=== PATIENT | female | born 1980 ===

== ENCOUNTER 2016-10-26 17:18 | Emergency (ER) | payer SELFPAY ==
[2016-10-26 17:21] VITALS: BMI 21.0
[2016-10-26 17:24] VITALS: TEMP 97.8
[2016-10-26] MEDS ORDERED: Sodium Chloride 0.9% 1,000 ML IV STA (17:37)
[2016-10-26] MEDS ORDERED: Sodium Chloride 0.9% 1,000 ML ONE ×2 (17:42→21:48)
[2016-10-26 17:55] LABS: BASO # 0.1 K/uL (0.0-0.2); BASO % 1.1 % (0.0-2.0); EOS # 0.2 K/uL (0.0-0.7); EOS % 1.7 % (0.0-4.0); LYMPH # 2.9 K/uL (1.0-4.3); LYMPH % 22.3 % (20.0-40.0); MEAN CELL VOLUME 86.9 fL (81.0-99.0); MEAN CORPUSCULAR HEMOGLOBIN 28.2 pg (27.0-31.0); MEAN CORPUSCULAR HGB CONC 32.5 g/dL (33.0-37.0); MEAN PLATELET VOLUME 9.2 fL (7.2-11.7); MONO # 1.4 K/uL (0.0-0.8); MONO % 10.7 % (0.0-10.0); NRBC % 0.1 % (0.0-2.0); RED CELL DISTRIBUTION WIDTH 12.6 % (11.5-14.5); WHITE BLOOD COUNT 12.9 K/uL (4.8-10.8)
[2016-10-26 17:59] LABS: CHLORIDE 93 mmol/L (98-107)
[2016-10-26 18:00] LABS: SODIUM 134 mmol/L (132-148)
[2016-10-26 18:01] LABS: POTASSIUM 3.1 mmol/L (3.6-5.2)
[2016-10-26 18:02] LABS: GFR AFRICAN-AMERICAN > 60
[2016-10-26 18:03] LABS: ALB/GLOB RATIO 1.2 (1.0-2.1); ALKALINE PHOSPHATASE 82 U/L (38-126); ALT/SGPT 51 U/L (9-52); AST/SGOT 46 U/L (14-36); BILIRUBIN,TOTAL 0.9 mg/dL (0.2-1.3); BLOOD UREA NITROGEN 22 mg/dL (7-17); CARBON DIOXIDE 28 mmol/L (22-30); GLUCOSE,RANDOM 95 mg/dL (65-105); TOTAL PROTEIN 8.1 g/dL (6.3-8.3)
--- NOTE | 2016-10-26 18:37 | C.PDOC ---
History Of Present Illness <Kym Moya - Last Filed: 10/26/16 19:01> <Jeanne Grove - Last Filed: 10/26/16 22:32> 36 year old female presents to the ED with complaints of upper abdominal pain and vomiting for 8 days straight. She notes she went to the clinic today and was sent for evaluation. Patient has a positive test and believes she is 8-9 weeks and has a 10 month old child. Patient denies any diarrhea , fever, or other complaints at this time. (Kym Moya) History Per: Patient History/Exam Limitations: no limitations Onset/Duration Of Symptoms: Days (8 days ) Current Symptoms Are (Timing): Still Present Location Of Pain/Discomfort: Other (upper abdominal pain ) Quality Of Discomfort: "Pain" Associated Symptoms: Vomiting. denies: Fever, Chills, Diarrhea Recent travel outside of the [place]: No <Kym Moya - Last Filed: 10/26/16 19:01> <Jeanne Grove - Last Filed: 10/26/16 22:32> Time Seen by Provider: 10/26/16 17:26 Chief Complaint (Nursing): GI Problem Past Medical History Reviewed: Historical Data, Nursing Documentation, Vital Signs Family History: States: No Known Family Hx - Social History Hx Alcohol Use: No Hx Substance Use: No - Immunization History Hx Tetanus Toxoid Vaccination: No Hx Influenza Vaccination: No Hx Pneumococcal Vaccination: No <Kym Moya - Last Filed: 10/26/16 19:01> Review Of Systems Constitutional: Negative for: Fever, Chills, Sweats Gastrointestinal: Positive for: Vomiting. Negative for: Nausea, Abdominal Pain , Diarrhea Genitourinary: Negative for: Dysuria, Hematuria <Kym Moya - Last Filed: 10/26/16 19:01> Physical Exam - Physical Exam Appears: Non-toxic, No Acute Distress Skin: Warm, Dry Head: Normacephalic Eye(s): bilateral: Normal Inspection Oral Mucosa: Moist Neck: Supple Chest: Symmetrical, No Deformity Cardiovascular: Rhythm Regular, Murmur Respiratory: No Accessory Muscle Use, No Rales, No Rhonchi, No Stridor, No Wheezing Gastrointestinal/Abdominal: Soft, Tenderness (tenderness in epigastric area ), No Distention, No Guarding, No Rebound Extremity: Normal ROM, No Tenderness Neurological/Psych: Oriented x3 <Kym Moya - Last Filed: 10/26/16 19:01> ED Course And Treatment - Laboratory Results Result Diagrams: 10/26/16 17:45 10/26/16 17:45 O2 Sat by Pulse Oximetry: 97 (room air ) <Kym Moya - Last Filed: 10/26/16 19:01> - Laboratory Results Result Diagrams: 10/26/16 17:45 10/26/16 17:45 Pulse Ox Interpretation: Normal Reevaluation Time: 22:32 Reassessment Condition: Improved <Jeanne Grove - Last Filed: 10/26/16 22:32> Medical Decision Making <Kym Moya - Last Filed: 10/26/16 19:01> <Kayla Grovedi - Last Filed: 10/26/16 22:32> Medical Decision Making: Patient was IV hydrated and a US for pelvis and abdomen was performed. Patient had elevated lipase. (Kym Moya) Disposition - Disposition Disposition Time: 19:02 <Kym Moya - Last Filed: 10/26/16 19:01> Counseled Patient/Family Regarding: Studies Performed, Diagnosis, Need For Followup, Rx Given <PerfectoKaylachristian - Last Filed: 10/26/16 22:32> - Disposition Referrals: Damian Gifford MD [Staff Provider] - Disposition: HOME/ ROUTINE Condition: FAIR Additional Instructions: Please return if symptoms recur. Slowly increase your food intake Prescriptions: Metoclopramide [Reglan] 1 tab PO TID PRN #25 tab PRN Reason: Nausea/Vomiting Nitrofurantoin Macrocrystals [Macrobid] 1 cap PO BID #14 cap Instructions: Hyperemesis Gravidarum (ED), Abdominal Pain in (ED) - Clinical Impression Clinical Impression: Vomiting, Nausea, Abdominal pain during - Scribe Statement The provider has reviewed the documentation as recorded by the Scribe <Kym Moya - Last Filed: 10/26/16 19:01> <Jeanne Grove - Last Filed: 10/26/16 22:32> - Scribe Statement Shasta Osorio All medical record entries made by the Scribe were at my direction and personally dictated by me. I have reviewed the chart and agree that the record accurately reflects my personal performance of the history, physical exam, medical decision making, and the department course for this patient. I have also personally directed, reviewed, and agree with the discharge instructions and disposition. (Kym Moya) Physician Patient Turnover Patient Signed Over To: Jeanne Grove Handoff Comments: Abd and pelvic US, dispo <Kym Moya - Last Filed: 10/26/16 19:01>
[2016-10-26] MEDS ORDERED: Sodium Chloride 0.9% 1,000 ML IV ONE (20:38)
--- NOTE | 2016-10-26 20:48 | US ---
EXAM: US Abdomen Complete CLINICAL HISTORY: 36 years old, female; Signs and symptoms; Vomiting; ; Additional info: , vomiting, elevated lipase wbcs TECHNIQUE: Real-time ultrasound of the abdomen (complete) with image documentation. EXAM DATE/TIME: Exam ordered 10/26/2016 6:11 PM COMPARISON: No relevant prior studies available. FINDINGS: Liver: The liver measures 12.9 cm in craniocaudal span. There is normal blood flow direction the main portal vein. No intrahepatic bile duct dilation. Gallbladder: Sludge is noted within the gallbladder. No gallstones. Common bile duct: The common bile duct measures 3 mm.. No stones. No dilation. Pancreas: Unremarkable as visualized. Kidneys: The right kidney measures 10.6 x 3.7 x 5.2 cm. The left kidney measures 10 x 4.9 x 4.7 cm. No stones. No hydronephrosis. Spleen: The spleen measures 8.3 cm in craniocaudal span. Aorta: Unremarkable. No aneurysm. Inferior vena cava: Unremarkable. Other findings: IMPRESSION: Sludge within the gallbladder
--- NOTE | 2016-10-26 20:53 | US ---
EXAM: US First Trimester, Transabdominal CLINICAL HISTORY: 36 years old, female; Signs and symptoms; Lmp or gestational age (in weeks): Unknown; Other: Vomiting; TECHNIQUE: Real-time transabdominal obstetrical ultrasound of the maternal pelvis and a first trimester with image documentation. EXAM DATE/TIME: Exam ordered 10/26/2016 5:38 PM COMPARISON: No relevant prior studies available. FINDINGS: Gestation: There is a single intrauterine gestational sac. The sac measures 4.8 x 1.9 x 3.6 cm for a mean sac diameter of 3.4 cm representing a menstrual age of 8 weeks and 4 days. There is a yolk sac present. There is a pole with a crown-rump length measurement of 1.8 cm for menstrual age of 8 weeks and 2 days Cardiac activity is noted at a rate of 174 beats per minute. Placenta/amniotic fluid: There is a subchorionic hemorrhage noted measuring 1.1 x 1.1 x 2.1 cm. It occupies less than 10% of the circumference of the sac. Uterus/cervix: The uterus is retroflexed and measures 9.9 x 6.4 x 6.6 cm . The cervix is closed the time the examination measure 3.4 cm in length. No myometrial mass. Ovaries: The left ovary measures 2.4 x 2.5 x 1.8 cm. Blood flow is demonstrated on color Doppler examination within the left ovary. The right ovary measures 2.7 x 2 x 2.6 cm. Subcentimeter follicles are present. Blood flow is demonstrated on pulsed Doppler examination. No mass. Free fluid: No free fluid. IMPRESSION: 1. Single live intrauterine with an estimated menstrual age of 8 weeks and 2 days. 2. Small subchorionic hemorrhage.
[2016-10-26] MEDS ORDERED: Potassium Chloride 10 mEq ER Tab PO STA (21:36)
[2016-10-26] MEDS ORDERED: Potassium Chloride 20 mEq ER Tab PO ONE (21:47)
[2016-10-26] MEDS: Sodium Chloride 0.9% 1,000 ML IV ONE ×2 (21:49→21:50)
[2016-10-26 22:21] LABS: RBC URINE 7 /hpf (0-3); URINE BILIRUBIN NEGATIVE (NEGATIVE); URINE BLOOD NEGATIVE (NEGATIVE); URINE COLOR Yellow (YELLOW); URINE GLUCOSE (UA) NORMAL (Normal); URINE KETONE 2+ mg/dL (NEGATIVE); URINE LEUKOCYTE ESTERASE 2+ Leu/uL (Negative); URINE PROTEIN 1+ mg/dL (NEGATIVE); WBC URINE 27 /hpf (0-5)
[2016-10-26 22:47] VITALS: BP 120/80; PULSE 80; RESP 14; O2SAT 99
== END 2016-10-26 22:49 | disposition home or self-care (01) ==
LOC: C.ER 17:18 → EDBD 17:18 → C.ER 22:49
DX: O21.0 Mild hyperemesis gravidarum (principal); O26.891 Other specified pregnancy related conditions, first trimester; R10.10 Upper abdominal pain, unspecified; Z3A.08 8 weeks gestation of pregnancy
CPT/HCPCS: 76700; 76801; 80053; 81001; 83690; 84702; 85025; 96361; 96374; 99284; J2405; J7040

== ENCOUNTER 2016-11-05 10:00 | Observation (INO) | payer OTHER ==
[2016-11-05 10:01] VITALS: BMI 21.0
[2016-11-05] MEDS ORDERED: Sodium Chloride 0.9% 1,000 ML IV ONE (10:52)
[2016-11-05] MEDS ORDERED: Dextrose 5%/0.45% NS 1,000 ML IV ONE ×4 (10:54→14:10)
[2016-11-05 11:23] LABS: BASO # 0.1 K/uL (0.0-0.2); BASO % 0.5 % (0.0-2.0); EOS # 0.1 K/uL (0.0-0.7); EOS % 0.4 % (0.0-4.0); HEMATOCRIT 48.9 % (34.0-47.0); LYMPH # 1.6 K/uL (1.0-4.3); LYMPH % 11.9 % (20.0-40.0); MEAN CELL VOLUME 88.1 fL (81.0-99.0); MEAN CORPUSCULAR HEMOGLOBIN 28.4 pg (27.0-31.0); MEAN CORPUSCULAR HGB CONC 32.2 g/dL (33.0-37.0); MEAN PLATELET VOLUME 8.1 fL (7.2-11.7); MONO # 0.7 K/uL (0.0-0.8); MONO % 5.1 % (0.0-10.0); RED CELL DISTRIBUTION WIDTH 14.1 % (11.5-14.5); WHITE BLOOD COUNT 13.2 K/uL (4.8-10.8)
--- NOTE | 2016-11-05 11:32 | C.PDOC ---
History Of Present Illness 36 year old patient presents to the ED complaining of vomiting for the past 3 days. Patient also complains of associated epigastric pain which radiates to her chest and throat. Patient states she is 9 weeks ; 2 para 1. She has been unable to tolerate po. Patient was seen here on 10/26/16 for similar symptoms and had an ultrasound done at that time. Patient denies fever, chills, shortness of breath, vaginal bleeding, diarrhea, urinary symptoms or back pain. Time Seen by Provider: 11/05/16 10:53 Chief Complaint (Nursing): Abdominal Pain History Per: Patient History/Exam Limitations: no limitations Onset/Duration Of Symptoms: Days (3) Current Symptoms Are (Timing): Still Present Context: Other Severity: Mild Pain Scale Rating Of: 3 Location Of Pain/Discomfort: Epigastric Radiation Of Pain To:: Chest, Other (throat) Quality Of Discomfort: "Pain" Associated Symptoms: Vomiting Exacerbating Factors: None Alleviating Factors: None Last Bowel Movement: Today Recent travel outside of the [place] States: No Additional History Per: Prior Records Abnormal Vaginal Bleeding: No Last Menstral Period: first week of August 2016 : 2 Para: 1 Past Medical History Reviewed: Historical Data, Nursing Documentation, Vital Signs Vital Signs: Last Vital Signs Temp 98.1 F 11/05/16 14:32 Pulse 97 H 11/05/16 17:54 Resp 20 11/05/16 17:54 BP 116/73 11/05/16 17:54 Pulse Ox 97 11/05/16 17:54 Family History: States: Unknown Family Hx - Social History Hx Alcohol Use: No Hx Substance Use: No - Immunization History Hx Tetanus Toxoid Vaccination: No Hx Influenza Vaccination: No Hx Pneumococcal Vaccination: No Review Of Systems Except As Marked, All Systems Reviewed And Found Negative. Constitutional: Negative for: Fever, Chills ENT: Positive for: Throat Pain Cardiovascular: Positive for: Chest Pain Respiratory: Negative for: Shortness of Breath Gastrointestinal: Positive for: Vomiting, Abdominal Pain (epigastric) Genitourinary: Negative for: Dysuria, Frequency, Vaginal Bleeding Musculoskeletal: Negative for: Back Pain Physical Exam - Physical Exam Appears: Non-toxic, No Acute Distress Skin: Warm, Dry Head: Atraumatic, Normacephalic Eye(s): bilateral: Normal Inspection, EOMI Oral Mucosa: Moist Neck: Normal ROM, Supple Chest: Symmetrical Cardiovascular: Rhythm Regular Respiratory: Normal Breath Sounds, No Rales, No Rhonchi, No Wheezing Gastrointestinal/Abdominal: Soft, Tenderness (mild epigastric discomfort), No Guarding, No Rebound Back: Normal Inspection, No CVA Tenderness Extremity: Normal ROM Neurological/Psych: Oriented x3, Normal Speech, Normal Cognition Gait: Steady ED Course And Treatment - Laboratory Results Result Diagrams: 11/05/16 11:16 11/05/16 11:16 O2 Sat by Pulse Oximetry: 98 (room air) Pulse Ox Interpretation: Normal Progress Note: Plan: Labs, Dextrose, IV fluids, Zofran Disposition Discussed With : Christiana A Pablo Doctor Will See Patient In The: ED - Disposition Disposition: HOSPITALIZED Disposition Time: 18:00 Condition: GUARDED - Clinical Impression Clinical Impression: Hyperemesis gravidarum - Scribe Statement The provider has reviewed the documentation as recorded by the Scribe Radha Galindo Provider Attestation: All medical record entries made by the Scribe were at my direction and personally dictated by me. I have reviewed the chart and agree that the record accurately reflects my personal performance of the history, physical exam, medical decision making, and the department course for this patient. I have also personally directed, reviewed, and agree with the discharge instructions and disposition. Decision To Admit - Pt Status Changed To: Hospital Disposition Of: Observation - . 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
[2016-11-05 11:58] LABS: CHLORIDE 96 mmol/L (98-107); POTASSIUM 3.4 mmol/L (3.6-5.2); SODIUM 134 mmol/L (132-148)
[2016-11-05 12:01] LABS: BLOOD UREA NITROGEN 21 mg/dL (7-17); CARBON DIOXIDE 22 mmol/L (22-30); GFR AFRICAN-AMERICAN > 60; GLUCOSE,RANDOM 117 mg/dL (65-105)
[2016-11-05 12:02] LABS: CALCIUM 9.7 mg/dl (8.6-10.4)
[2016-11-05 12:21] LABS: RBC URINE 6 /hpf (0-3); URINE BACTERIA RARE (<OCC); URINE BILIRUBIN NEGATIVE (NEGATIVE); URINE BLOOD 1+ (NEGATIVE); URINE COLOR Yellow (YELLOW); URINE GLUCOSE (UA) 1+ mg/dL (Normal); URINE KETONE 2+ mg/dL (NEGATIVE); URINE LEUKOCYTE ESTERASE 2+ Leu/uL (Negative); URINE PROTEIN 1+ mg/dL (NEGATIVE); URINE UROBILINOGEN NORMAL mg/dL (0.2-1.0); WBC URINE 6 /hpf (0-5)
[2016-11-05] MEDS ORDERED: Pyridoxine HCl 50 MG in Dextrose 5%/0.9% NS 1,000 ML IV ONE (18:29)
--- NOTE | 2016-11-05 19:42 | CP.PCM.HP ---
History of Present Illness - History of Present Illness History of Present Illness: 36 y.o. , 9 weeks 5 days by yarielo 10/26/16 at 8 weeks 2 days admitted for management of hyperemesis gravidarum: has been in E.D. x 8 hours. Patient presented to E.D. earlier c/o vomiting x 3 days, yellowish vomitus, which then became brownish; dizziness; and upper abdominal pain. S/P 3 litres of IVFs, IV zofran with no significant improvement. Received IV reglan 1 hour prior to this evaluation: states feels slightly better - now only spitting; mid upper abdominal pain has improved. Patient most recently c/o lightheadedness. HPI: seen in E.D. 10/26/16: diagnosed with UTI and dehydration. Received IVFs and discharged home on macroBID and reglan; did not complete antibiotics due to resurgence of vomiting 3 days ago. Reglan was not helpful when she resumed taking it. Denies vaginal bleeding or any abnormal vaginal discharge P Ob: 11/22/15, C/S, male, 8lb 15oz, failed labor; [facility]; no complications P [employer]: 13 x 28 x 3-5. Denies STIs or abnormal Pap PMH: denies PSH: c/S NKDA Meds: PNV, macroBID, reglan Soc Hx: denies tobacco, illicit drug or EtOH use. Lives with her partner and son. Fam Hx: non contributory Present on Admission - Present on Admission Any Indicators Present on Admission: No Review of Systems - Review of Systems All systems: reviewed and no additional remarkable complaints except - Gastrointestinal Gastrointestinal: As Per HPI, Abdominal Pain, Vomiting Past Patient History - Infectious Disease Hx of Infectious Diseases: None - Past Medical History & Family History Past Medical History?: No Past Family History: Reviewed and not pertinent - Past Social History Smoking Status: Never Smoked Home Situation {Lives}: Friends - CARDIAC Hx Cardiac Disorders: No - PULMONARY Hx Respiratory Disorders: No - NEUROLOGICAL Hx Neurological Disorder: No - HEENT Hx HEENT Problems: No - RENAL Hx Chronic Kidney Disease: No - ENDOCRINE/METABOLIC Hx Endocrine Disorders: No - HEMATOLOGICAL/ONCOLOGICAL Hx Blood Disorders: No - INTEGUMENTARY Hx Dermatological Problems: No - MUSCULOSKELETAL/RHEUMATOLOGICAL Hx Musculoskeletal Disorders: No - GASTROINTESTINAL Hx Gastrointestinal Disorders: No - GENITOURINARY/GYNECOLOGICAL Hx Genitourinary Disorders: No - PSYCHIATRIC Hx Psychophysiologic Disorder: No Hx Substance Use: No - SURGICAL HISTORY Hx Surgeries: Yes Hx Section: Yes (x1) - ANESTHESIA Hx Anesthesia: Yes Hx Anesthesia Reactions: No Meds Allergies/Adverse Reactions: Allergies Allergy/AdvReac Type Severity Reaction Status Date / Time No Known Allergies Allergy Verified 10/26/16 17:20 Physical Exam - Constitutional Appears: Well, Non-toxic, No Acute Distress - Head Exam Head Exam: NORMAL INSPECTION - Eye Exam Eye Exam: Normal appearance - Neck Exam Neck exam: Positive for: Full Rom - Respiratory Exam Respiratory Exam: Clear to Auscultation Bilateral, NORMAL BREATHING PATTERN - Cardiovascular Exam Cardiovascular Exam: REGULAR RHYTHM - GI/Abdominal Exam GI & Abdominal Exam: Normal Bowel Sounds Additional comments: no rebound tenderness; no epigastric tenderness; no Phoenix's sign - Extremities Exam Extremities exam: Positive for: full ROM, normal inspection Results - Vital Signs Recent Vital Signs: Last Vital Signs Temp 98.0 F 11/05/16 18:20 Pulse 97 H 11/05/16 17:54 Resp 20 11/05/16 17:54 BP 116/73 11/05/16 17:54 Pulse Ox 98 11/05/16 18:00 - Labs Result Diagrams: 11/05/16 11:16 11/05/16 11:16 Assessment & Plan - Assessment and Plan (Free Text) Assessment: Laboratory values from today and ultrasound reports from 10/26/16 reviewed by me : noted for 1) SIUP, 8w 2d; small subchorionic hemorrhage. 2) gallbladder with sludge; no gall stones 36 y.o. P1, 9w 5d, hyperemesis gravidarum (ketonuria). Partially treated UTI; will resume antibiotics after tolerating p.o. Patient agrees. Patient is clinically stable. Plan: 1) Admit 2) NPO 3) D5NS with 4) Pyridoxine 50 mg Q 24 hours 5) repeat CBC, comp in AM 6) TSH, free T4 7) Anti-emetics - Date & Time Date: 11/05/16 Time: 19:50
[2016-11-05] MEDS ORDERED: Pneumococcal 23-Valent Vaccine IM ONE (22:00)
[2016-11-06 01:21] VITALS: RESP 20; O2SAT 97
[2016-11-06 08:22] LABS: BASO % 0.7 % (0.0-2.0); EOS # 0.2 K/uL (0.0-0.7); EOS % 2.3 % (0.0-4.0); HEMATOCRIT 37.4 % (34.0-47.0); LYMPH # 1.9 K/uL (1.0-4.3); LYMPH % 25.9 % (20.0-40.0); MEAN CELL VOLUME 88.5 fL (81.0-99.0); MEAN CORPUSCULAR HEMOGLOBIN 28.9 pg (27.0-31.0); MEAN CORPUSCULAR HGB CONC 32.7 g/dL (33.0-37.0); MEAN PLATELET VOLUME 8.1 fL (7.2-11.7); MONO # 0.6 K/uL (0.0-0.8); MONO % 8.7 % (0.0-10.0); NRBC % 0.1 % (0.0-2.0); RED CELL DISTRIBUTION WIDTH 13.6 % (11.5-14.5); WHITE BLOOD COUNT 7.4 K/uL (4.8-10.8)
[2016-11-06 09:07] LABS: CHLORIDE 101 mmol/L (98-107); POTASSIUM 3.2 mmol/L (3.6-5.2); SODIUM 134 mmol/L (132-148)
[2016-11-06 09:10] LABS: ALKALINE PHOSPHATASE 51 U/L (38-126); ALT/SGPT 32 U/L (9-52); AST/SGOT 24 U/L (14-36); BILIRUBIN,TOTAL 0.8 mg/dL (0.2-1.3); BLOOD UREA NITROGEN 15 mg/dL (7-17); CALCIUM 8.1 mg/dl (8.6-10.4); CARBON DIOXIDE 25 mmol/L (22-30); GFR AFRICAN-AMERICAN > 60; GLUCOSE,RANDOM 86 mg/dL (65-105); TOTAL PROTEIN 6.1 g/dL (6.3-8.3)
--- NOTE | 2016-11-06 09:44 | CP.PCM.PN ---
Subjective - Date & Time of Evaluation Date of Evaluation: 11/06/16 Time of Evaluation: 09:39 - Subjective Subjective: PGY-1 OB progress note for attending, Dr. Baird Pt seen and examined at bedside. Pt denies abdominal pain, nausea, diarrhea, bouts of dizziness, or episodes of vomiting overnight. Her last episode of emesis according to patient was 'last night around 6pm.' She admits feeling hungry for solid food after tolerating liquid diet this AM. She denies dysuria, urinary frequency, or vaginal discharge. Objective - Vital Signs/Intake and Output Vital Signs (last 24 hours): Temp Pulse Resp BP Pulse Ox 98.1 F 76 20 111/75 97 11/06/16 08:42 11/06/16 08:42 11/06/16 08:42 11/06/16 08:42 11/06/16 08:42 Intake and Output: 11/06/16 11/06/16 06:59 18:59 Intake Total 650 650 Balance 650 650 - Medications Medications: Current Medications Potassium Chloride (Potassium Chloride 10 Meq/100 Ml) 10 meq in 100 mls @ 100 mls/hr IVPB ONCE ONE Stop: 11/06/16 10:36 Metoclopramide HCl (Reglan) 10 mg IVP ACHS JAQUELINE Last Admin: 11/06/16 08:50 Dose: 10 mg Pantoprazole Sodium (Protonix Inj) 40 mg IVP Q12H JAQUELINE Last Admin: 11/06/16 05:55 Dose: 40 mg - Labs Labs: 11/06/16 08:06 11/06/16 08:06 - Constitutional Appears: Non-toxic, No Acute Distress - Head Exam Head Exam: ATRAUMATIC, NORMAL INSPECTION, NORMOCEPHALIC - Eye Exam Eye Exam: EOMI, Normal appearance Pupil Exam: PERRL - ENT Exam ENT Exam: Mucous Membranes Moist - Neck Exam Neck Exam: Full ROM - Respiratory Exam Respiratory Exam: Clear to Ausculation Bilateral, NORMAL BREATHING PATTERN. absent: Rales, Rhonchi, Wheezes - Cardiovascular Exam Cardiovascular Exam: REGULAR RHYTHM, +S1, +S2 - GI/Abdominal Exam GI & Abdominal Exam: Soft, Normal Bowel Sounds. absent: Distended, Firm, Guarding, Tenderness Additional comments: Negative Phoenix, Rovsing - Extremities Exam Extremities Exam: Normal Inspection. absent: Pedal Edema, Tenderness - Back Exam Back Exam: absent: CVA tenderness (L), CVA tenderness (R) - Neurological Exam Neurological Exam: Alert, Awake, Oriented x3 - Skin Skin Exam: Normal Color, Warm Assessment and Plan - Assessment and Plan (Free Text) Assessment: 36 y.o. P1, 9w 6d, hyperemesis gravidarum (ketonuria). Partially treated UTI; will resume antibiotics after tolerating p.o. Patient agrees. Patient is clinically stable. Plan: Hyperemesis Gravidarum Pt treated with D5NS with Pyridoxine 50 mg Q 24 hours Denies N/V overnight Will advance diet to soft regular If tolerated will eval for d/c today UTI UA (11/05/2016): LE 2+, Nitrate negative, Protein 1+, Ketones 2+, Blood 1+ Pt seen in [facility] ED on 11/06, dx with UTI- given prescription for Macrobid 100mg PO BID (course not completed due to emesis) Will restart if tolerating food Hypokalemia 3.2 on AM labs, repleted w. IV - avoided Kdur due to pts previous nausea D/W Dr. Oli Jordan, PGY-1
--- NOTE | 2016-11-06 15:46 | CP.PCM.DIS ---
Provider - Provider Date of Admission: 11/05/16 18:27 Attending physician: Christiana Shah MD Time Spent in preparation of Discharge (in minutes): 40 Diagnosis - Discharge Diagnosis (1) Hyperemesis gravidarum Status: Suspected (2) Abdominal pain during Status: Resolved (3) Nausea Status: Acute (4) Vomiting Status: Resolved Hospital Course - Lab Results Lab Results: Most Recent Lab Values WBC 7.4 K/uL (4.8-10.8) 11/06/16 08:06 RBC 4.23 Mil/uL (3.80-5.20) 11/06/16 08:06 Hgb 12.2 g/dL (11.0-16.0) D 11/06/16 08:06 Hct 37.4 % (34.0-47.0) 11/06/16 08:06 MCV 88.5 fL (81.0-99.0) 11/06/16 08:06 MCH 28.9 pg (27.0-31.0) 11/06/16 08:06 MCHC 32.7 g/dL (33.0-37.0) L 11/06/16 08:06 RDW 13.6 % (11.5-14.5) 11/06/16 08:06 Plt Count 242 K/uL (130-400) D 11/06/16 08:06 MPV 8.1 fL (7.2-11.7) 11/06/16 08:06 Neut % (Auto) 62.4 % (50.0-75.0) 11/06/16 08:06 Lymph % (Auto) 25.9 % (20.0-40.0) 11/06/16 08:06 [place] % (Auto) 8.7 % (0.0-10.0) 11/06/16 08:06 Eos % (Auto) 2.3 % (0.0-4.0) 11/06/16 08:06 Baso % (Auto) 0.7 % (0.0-2.0) 11/06/16 08:06 Neut # 4.6 K/uL (1.8-7.0) 11/06/16 08:06 Lymph # 1.9 K/uL (1.0-4.3) 11/06/16 08:06 [place] # 0.6 K/uL (0.0-0.8) 11/06/16 08:06 Eos # 0.2 K/uL (0.0-0.7) 11/06/16 08:06 Baso # 0.0 K/uL (0.0-0.2) 11/06/16 08:06 Sodium 134 mmol/L (132-148) 11/06/16 08:06 Potassium 3.2 mmol/L (3.6-5.2) L 11/06/16 08:06 Chloride 101 mmol/L (98-107) 11/06/16 08:06 Carbon Dioxide 25 mmol/L (22-30) 11/06/16 08:06 Anion Gap 11 (10-20) 11/06/16 08:06 BUN 15 mg/dL (7-17) 11/06/16 08:06 Creatinine 0.5 MG/DL (0.7-1.2) L 11/06/16 08:06 Est GFR ( Amer) > 60 11/06/16 08:06 Est GFR (Non-Af Amer) > 60 11/06/16 08:06 Random Glucose 86 mg/dL (65-105) 11/06/16 08:06 Calcium 8.1 mg/dl (8.6-10.4) L 11/06/16 08:06 Total Bilirubin 0.8 mg/dL (0.2-1.3) 11/06/16 08:06 AST 24 U/L (14-36) 11/06/16 08:06 ALT 32 U/L (9-52) 11/06/16 08:06 Alkaline Phosphatase 51 U/L (38-126) 11/06/16 08:06 Total Protein 6.1 g/dL (6.3-8.3) L 11/06/16 08:06 Albumin 3.1 g/dL (3.5-5.0) L D 11/06/16 08:06 Globulin 3.0 gm/dL (2.2-3.9) 11/06/16 08:06 Albumin/Globulin Ratio 1.0 (1.0-2.1) 11/06/16 08:06 Beta HCG, Quant 209693.00 mIU/ML 11/05/16 11:16 Urine Color Yellow (YELLOW) 11/05/16 11:52 Urine Clarity Hazy (Clear) 11/05/16 11:52 Urine pH 5.0 (5.0-8.0) 11/05/16 11:52 Ur Specific [place] 1.020 (1.003-1.030) 11/05/16 11:52 Urine Protein 1+ mg/dL (NEGATIVE) H 11/05/16 11:52 Urine Glucose (UA) 1+ mg/dL (Normal) 11/05/16 11:52 Urine Ketones 2+ mg/dL (NEGATIVE) H 11/05/16 11:52 Urine Blood 1+ (NEGATIVE) H 11/05/16 11:52 Urine Nitrate Negative (NEGATIVE) 11/05/16 11:52 Urine Bilirubin Negative (NEGATIVE) 11/05/16 11:52 Urine Urobilinogen Normal mg/dL (0.2-1.0) 11/05/16 11:52 Ur Leukocyte Esterase 2+ Sotero/uL (Negative) H 11/05/16 11:52 Urine WBC (Auto) 6 /hpf (0-5) H 11/05/16 11:52 Urine RBC (Auto) 6 /hpf (0-3) H 11/05/16 11:52 Ur Squamous Epith Cells 8 /hpf (0-5) H 11/05/16 11:52 Urine Bacteria Rare (<OCC) 11/05/16 11:52 Serum Ketones Negative (NEGATIVE) 11/05/16 11:16 - Hospital Course Hospital Course: This is a 36 year old patient without PMH who is , 9 weeks 5 days by yarielo at 8 weeks 2 days presenting with vomiting during . The patient was managed symptomatically on the floor. The patient was initially NPO , then transitioned to a clear liquid diet and eventually a soft, regular diet. The patient tolerated the advancement with minimal nausea and no emetic episodes. The patients nausea was managed with IV reglan. The patient tolerated this medication well. The patient was seen and examined at the bedside with the attending physician. Patient was educated on her condition and given a prescription for Zofran 4mg q6 PRN. The patient clinically improved during her course. The patient was requesting DC home today and felt comfortable with DC. The patient tolerated her PO food without emetic episodes. The discharge plan and follow ups were extensively discussed with the patient who verbalized complete understanding and agreement with the plan and follow up plan. The patient's medical condition was also discussed and complete understanding was again verbalized. At this time, after discussion of all issues, the patient was deemed medically fit for discharge. - Date & Time of H&P Date of H&P: 11/05/16 Time of H&P: 19:28 Discharge Exam - Head Exam Head Exam: ATRAUMATIC, NORMAL INSPECTION, NORMOCEPHALIC - Additional Findings Additional findings: - Constitutional Appears: Non-toxic, No Acute Distress - Head Exam Head Exam: ATRAUMATIC, NORMAL INSPECTION, NORMOCEPHALIC - Eye Exam Eye Exam: EOMI, Normal appearance Pupil Exam: PERRL - ENT Exam ENT Exam: Mucous Membranes Moist - Neck Exam Neck Exam: Full ROM - Respiratory Exam Respiratory Exam: Clear to Ausculation Bilateral, NORMAL BREATHING PATTERN. absent: Rales, Rhonchi, Wheezes - Cardiovascular Exam Cardiovascular Exam: REGULAR RHYTHM, +S1, +S2 - GI/Abdominal Exam GI & Abdominal Exam: Soft, Normal Bowel Sounds. absent: Distended, Firm, Guarding, Tenderness Additional comments: Negative Phoenix, Rovsing - Extremities Exam Extremities Exam: Normal Inspection. absent: Pedal Edema, Tenderness - Back Exam Back Exam: absent: CVA tenderness (L), CVA tenderness (R) - Neurological Exam Neurological Exam: Alert, Awake, Oriented x3 - Skin Skin Exam: Normal Color, Warm Discharge Plan - Discharge Medications Prescriptions: Ondansetron [Zofran] 4 mg PO Q6H PRN #40 tab PRN Reason: Nausea/Vomiting - Follow Up Plan Condition: GUARDED Disposition: HOME/ ROUTINE Patient education suggested?: Yes Instructions: Hyperemesis Gravidarum (GEN), (GEN), Morning Sickness ( GEN), Ondansetron (By mouth) Additional Instructions: 1.) Follow up with PMD within 1 week 2.) Follow up with CHIEF LIFESTYLE OFFICER within 1 week 3.) take zofran 1 tab every 6 hours as needed by mouth for nausea and vomiting 4.) if symptoms return,. please return to the ED for evaluation Referrals: Christiana Shah MD [Staff Provider] -
[2016-11-06 17:59] VITALS: BP 101/64; PULSE 79; TEMP 98.5
== END 2016-11-06 18:25 | disposition home or self-care (01) ==
LOC: C.ER 10:00 → C.9E 18:27 → C.3T 20:00
PROVIDERS: ADMIT Obstetrics & Gynecology; ATTEND Obstetrics & Gynecology
DX: O21.0 Mild hyperemesis gravidarum (principal); O23.41 Unspecified infection of urinary tract in pregnancy, first trimester; O99.281 Endocrine, nutritional and metabolic diseases complicating pregnancy, first trimester; R82.4 Acetonuria; O09.521 Supervision of elderly multigravida, first trimester; Z3A.09 9 weeks gestation of pregnancy
CPT/HCPCS: 36415; 80048; 80053; 81001; 82009; 84439; 84443; 84702; 85025; 87086; 96361; 96365; 96375; 96376; 99285; C9113; G0378; J2405; J2765; J3415; J3480; J7040; J7042

== ENCOUNTER 2016-11-15 19:18 | Emergency (ER) | payer SELFPAY ==
[2016-11-15 19:18] VITALS: BMI 21.0
--- NOTE | 2016-11-15 20:14 | C.PDOC ---
History Of Present Illness Patient presents to the ER with a complaint of nausea, vomiting, and not being able to tolerate PO. Patient reports having a history of these symptoms before. Patient is P:1. Denies vaginal bleeding, diarrhea, fever, or chills. Time Seen by Provider: 11/15/16 20:13 Chief Complaint (Nursing): GI Problem History Per: Patient History/Exam Limitations: no limitations Onset/Duration Of Symptoms: Days Current Symptoms Are (Timing): Still Present Context: Other Severity: None Pain Scale Rating Of: 0 Location Of Pain/Discomfort: Other (No pain) Radiation Of Pain To:: None Quality Of Discomfort: Other (No pain) Associated Symptoms: Nausea, Vomiting, Other (Not tolerating PO. No vaginal bleeding.). denies: Fever, Chills, Diarrhea Alleviating Factors: None Recent travel outside of the [place]: No Abnormal Vaginal Bleeding: No Past Medical History Reviewed: Historical Data, Nursing Documentation, Vital Signs Vital Signs: Last Vital Signs Temp 98.3 F 11/15/16 19:42 Pulse 125 H 11/15/16 19:42 Resp 18 11/15/16 19:42 BP 101/63 11/15/16 19:42 Pulse Ox 99 11/15/16 20:30 - Medical History PMH: No Chronic Diseases Surgical History: No Surg Hx Family History: States: No Known Family Hx - Social History Hx Alcohol Use: No Hx Substance Use: No - Immunization History Hx Tetanus Toxoid Vaccination: No Hx Influenza Vaccination: No Hx Pneumococcal Vaccination: No Review Of Systems Constitutional: Negative for: Fever, Chills ENT: Negative for: Throat Pain Cardiovascular: Negative for: Chest Pain Respiratory: Negative for: Shortness of Breath Gastrointestinal: Positive for: Nausea, Vomiting, Other (Not tolerating PO). Negative for: Diarrhea Genitourinary: Negative for: Vaginal Bleeding Musculoskeletal: Negative for: Back Pain Skin: Negative for: Rash, Lesions, Jaundice, Bruising Neurological: Negative for: Weakness Psych: Negative for: Anxiety Physical Exam - Physical Exam Appears: Non-toxic Skin: Warm, Dry Eye(s): bilateral: Normal Inspection Oral Mucosa: Dry Lips: Other (Dry) Neck: Supple Chest: Symmetrical, No Tenderness Cardiovascular: Rhythm Regular, No Murmur Respiratory: No Rales, No Rhonchi, No Wheezing Gastrointestinal/Abdominal: Soft, No Tenderness Back: Normal Inspection Extremity: Normal ROM Extremity: Bilateral: Atraumatic Neurological/Psych: Oriented x3, Normal Speech, Normal Cognition Gait: Steady ED Course And Treatment - Laboratory Results Result Diagrams: 11/15/16 20:52 11/15/16 20:52 O2 Sat by Pulse Oximetry: 99 (Room air) Pulse Ox Interpretation: Normal Progress Note: Blood work and urinalysis ordered. Pepcid IVP, reglan IVP, and IV fluids administered. Reevaluation Time: 23:00 Reassessment Condition: Improved Disposition Counseled Patient/Family Regarding: Studies Performed, Diagnosis - Disposition Referrals: Christal Cohen APN [Primary Care Provider] - Disposition: HOME/ ROUTINE Disposition Time: 20:13 Condition: FAIR Prescriptions: Metoclopramide [Reglan] 1 tab PO TID PRN #25 tab PRN Reason: Nausea/Vomiting Instructions: Hyperemesis Gravidarum (ED) - Clinical Impression Clinical Impression: Hyperemesis - Scribe Statement Michael Garza All medical record entries made by the Scribe were at my direction and personally dictated by me. I have reviewed the chart and agree that the record accurately reflects my personal performance of the history, physical exam, medical decision making, and the department course for this patient. I have also personally directed, reviewed, and agree with the discharge instructions and disposition.
[2016-11-15] MEDS ORDERED: Sodium Chloride 0.9% 1,000 ML IV ONE (20:21)
[2016-11-15] MEDS ORDERED: Sodium Chloride 0.9% 2,000 ML ONE (20:45)
[2016-11-15 21:06] LABS: BASO % 0.4 % (0.0-2.0); EOS # 0.1 K/uL (0.0-0.7); EOS % 0.6 % (0.0-4.0); HEMATOCRIT 50.3 % (34.0-47.0); LYMPH # 2.5 K/uL (1.0-4.3); LYMPH % 23.4 % (20.0-40.0); MEAN CELL VOLUME 87.3 fL (81.0-99.0); MEAN CORPUSCULAR HGB CONC 33.2 g/dL (33.0-37.0); MEAN PLATELET VOLUME 8.4 fL (7.2-11.7); MONO # 0.8 K/uL (0.0-0.8); MONO % 7.1 % (0.0-10.0); RED CELL DISTRIBUTION WIDTH 13.9 % (11.5-14.5); WHITE BLOOD COUNT 10.8 K/uL (4.8-10.8)
[2016-11-15 21:14] LABS: CHLORIDE 94 mmol/L (98-107); POTASSIUM 3.3 mmol/L (3.6-5.2); SODIUM 137 mmol/L (132-148)
[2016-11-15 21:16] LABS: GFR AFRICAN-AMERICAN > 60
[2016-11-15 21:17] LABS: ALB/GLOB RATIO 1.2 (1.0-2.1); ALKALINE PHOSPHATASE 85 U/L (38-126); ALT/SGPT 16 U/L (9-52); AST/SGOT 21 U/L (14-36); BLOOD UREA NITROGEN 25 mg/dL (7-17); CALCIUM 10.1 mg/dl (8.6-10.4); CARBON DIOXIDE 24 mmol/L (22-30); GLUCOSE,RANDOM 122 mg/dL (65-105); TOTAL PROTEIN 9.2 g/dL (6.3-8.3)
[2016-11-15 23:48] VITALS: BP 119/68; PULSE 82; RESP 20; TEMP 98; O2SAT 98
== END 2016-11-15 23:46 | disposition home or self-care (01) ==
LOC: SUPCPDRO 19:18 → C.ER 19:18
DX: O21.0 Mild hyperemesis gravidarum (principal); Z3A.11 11 weeks gestation of pregnancy
CPT/HCPCS: 80053; 83690; 85025; 96361; 96374; 96375; 99284; J2765; J7040